=== PATIENT | female | born 1980 | race Caucasian/White ===

== ENCOUNTER 2019-04-14 23:05 | Emergency (ER) | payer MEDICARE, MEDICAID ==
[~2019-04-14] VITALS: Ht 162.6 cm; Wt 93.6 kg
[~2019-04-14 23:05] MED LIST: ALPR-475; PARO20TA98
--- NOTE | 2019-04-14 23:17 | NUR ---
FIRST CONTACT WITH PT. PT IS PARTICULARLY DIFFICULT TO OBTAIN HISTORY FROM D/T MULTIPLE GENERALIZED COMPLAINTS. PT HAVING DIFFICULTY REPORTING CHRONIC VS ACUTE CONDITION. PT REPORTS RUQ PAIN X "A LONG TIME" D/T HERNIA SP LIN. PT ALSO CO L FLANK PAIN X "" WORSENING RECENTLY. PT ALSO CO L SHOULDER PAIN, +FULL ROM/RADIAL PULSES/STRENGTH. +N/V/CONSTIPATION. "I MEAN I DON'T KNOW. I'M BULIMIC- SO MAYBE I'M JUST THROWING UP BECAUSE OF THAT". NAD NOTED. PT PWD; DENIES TRAUMA. BP/SPO2/ECG MONITORING IN PLACE. TECH AT FOR EKG. PT AMBUALTED STEADILY TO BATHROOM TO PROVIDE UA.
[2019-04-14 23:52] LABS: BASOPHILS # (AUTO) 0.04 x10^3/uL (0-0.1); BASOPHILS % (AUTO) 1 % (0-1); EOSINOPHILS # (AUTO) 0.06 x10^3/uL (0-0.4); EOSINOPHILS % (AUTO) 1 % (1-7); LYMPHOCYTES # (AUTO) 1.36 x10^3/uL (1-3.4); LYMPHOCYTES % (AUTO) 14 % (22-44); MD NO; MEAN CORPUSCULAR HEMOGLOBIN 29.8 pg (27.0-34.8); MEAN CORPUSCULAR HGB CONC 33.5 g/dL (32.4-35.8); MEAN PLATELET VOLUME 7.6 fL (7.4-10.4); MONOCYTES # (AUTO) 0.41 x10^3/uL (0.2-0.8); MONOCYTES % (AUTO) 4 % (2-9); NEUTROPHILS # (AUTO) 7.63 x10^3/uL (1.8-6.8); NEUTROPHILS % (AUTO) 80 % (42-75); PLATELET COUNT 372 x10^3/uL (130-400); RED BLOOD COUNT 4.39 x10^6/uL (3.82-5.3); RED CELL DISTRIBUTION WIDTH 14.8 % (9.6-15.2)
[2019-04-14] MEDS ORDERED: ONDANSETRON 2MG/ML, 2ML ONE (23:53)
[2019-04-14] MEDS ORDERED: KETOROLAC 30 MG/1 ML ONE (23:53)
[2019-04-15] VITALS: BP 151/81
[2019-04-15] MEDS ORDERED: KETOROLAC 30 MG/1 ML IVPush ONE
[2019-04-15] MEDS ORDERED: ONDANSETRON 2MG/ML, 2ML IVPush ONE
--- NOTE | 2019-04-15 00:01 | NUR ---
PT RETURNED FROM RAD. IV ESTABLSHED. PT MEDICATED PER EMAR FOR PAIN
[2019-04-15 00:04] LABS: HCG UR SG 1.036 (1.003-1.030); MICROSCOPIC INDICATED
[2019-04-15 00:05] LABS: ALANINE AMINOTRANSFERASE 25 U/L (12-78); ALBUMIN 3.4 g/dL (3.4-5.0); ANION GAP 5 mmol/L (5-15); CALCIUM 8.6 mg/dL (8.5-10.1); CHLORIDE 110 mmol/L (98-107); CREATININE 0.84 mg/dL (0.55-1.02)
[2019-04-15 00:08] LABS: ALKALINE PHOSPHATASE 65 U/L (45-117); TOTAL PROTEIN 7.3 g/dL (6.4-8.2)
[2019-04-15 00:12] LABS: CULTURE INDICATED? YES
[2019-04-15 00:17] LABS: BILIRUBIN,TOTAL < 0.1 mg/dL (0.2-1.0)
--- NOTE | 2019-04-15 00:45 | NUR ---
PT REPORTS IMPROVEMENT IN PAIN WITH MEDICATIONS. DC EDUCATION PROVIDED, PT DEMONSTRATES UNDERSTANDING. PT AMBULATED STEADILY TO DC WITH RN AND FRIEND
== END 2019-04-15 00:50 | disposition home or self-care (01) ==
LOC: ED 04-15 00:12
DX: R10.11 Right upper quadrant pain (principal); R10.13 Epigastric pain; R10.12 Left upper quadrant pain; R11.2 Nausea with vomiting, unspecified; Z90.89 Acquired absence of other organs; Z90.49 Acquired absence of other specified parts of digestive tract
CPT/HCPCS: 36415; 74021; 80053; 81001; 81025; 83690; 85025; 87086; 93005; 96374; 96375; 99284; J1885; J2405

== ENCOUNTER 2019-10-17 06:32 | Emergency (ER) | payer MEDICARE, MEDICAID ==
[~2019-10-17] VITALS: Ht 162.6 cm; Wt 89.0 kg
[~2019-10-17 06:32] MED LIST changes: -ALPR-475; +ALPR0.5T7
--- NOTE | 2019-10-17 06:54 | NUR ---
REPORT GIVEN TO JEWELS LEÓN.
[2019-10-17 07:25] LABS: BASOPHILS # (AUTO) 0.03 x10^3/uL (0-0.1); BASOPHILS % (AUTO) 0 % (0-1); EOSINOPHILS # (AUTO) 0.13 x10^3/uL (0-0.4); EOSINOPHILS % (AUTO) 1 % (1-7); LYMPHOCYTES % (AUTO) 23 % (22-44); MD NO; MEAN CORPUSCULAR HEMOGLOBIN 30.1 pg (27.0-34.8); MEAN CORPUSCULAR VOLUME 91.2 fL (80-100); MEAN PLATELET VOLUME 7.4 fL (7.4-10.4); MONOCYTES # (AUTO) 0.69 x10^3/uL (0.2-0.8); MONOCYTES % (AUTO) 7 % (2-9); NEUTROPHILS # (AUTO) 6.59 x10^3/uL (1.8-6.8); NEUTROPHILS % (AUTO) 68 % (42-75); PLATELET COUNT 413 x10^3/uL (130-400); RED BLOOD COUNT 4.79 x10^6/uL (3.82-5.3); RED CELL DISTRIBUTION WIDTH 14.5 % (9.6-15.2)
[2019-10-17 07:36] LABS: MICROSCOPIC AUTO
[2019-10-17 07:36] LABS: ALBUMIN 3.7 g/dL (3.4-5.0); ANION GAP 7 mmol/L (5-15); CALCIUM 9.3 mg/dL (8.5-10.1); CHLORIDE 103 mmol/L (98-107); CREATININE 1.02 mg/dL (0.55-1.02)
[2019-10-17 07:37] LABS: CULTURE INDICATED? NO
[2019-10-17 07:39] LABS: TROPONIN I < 0.015 ng/mL (0.000-0.045)
[2019-10-17] MEDS ORDERED: KETOROLAC 30 MG/1 ML ONE (07:54)
[2019-10-17] MEDS ORDERED: METHOCARBAMOL 750 MG TABLET ONE (07:54)
[2019-10-17] MEDS ORDERED: KETOROLAC 30 MG/1 ML IM ONE (08:00)
[2019-10-17] MEDS ORDERED: METHOCARBAMOL 750 MG TABLET PO ONE (08:00)
[2019-10-17] MEDS ORDERED: SODIUM CHLORIDE FLUSH 10ML SYR IVF ONE (09:00)
[2019-10-17 09:44] VITALS: BP 144/88
--- NOTE | 2019-10-17 09:45 | NUR ---
PT TO CT AT THIS TIME
[2019-10-17] MEDS ORDERED: OMNIPAQUE 350 MG/ML, 100ML BOTTLE ONE (09:53)
== END 2019-10-17 10:51 | disposition home or self-care (01) ==
LOC: ED 07:29
DX: S29.012A Strain of muscle and tendon of back wall of thorax, initial encounter (principal); R06.02 Shortness of breath; J02.9 Acute pharyngitis, unspecified; R05 Cough; X58.XXXA Exposure to other specified factors, initial encounter; Y93.89 Activity, other specified; Y92.89 Other specified places as the place of occurrence of the external cause; Y99.8 Other external cause status
CPT/HCPCS: 36415; 71045; 71275; 80048; 81001; 82040; 84484; 85025; 85379; 87081; 87880; 93005; 96372; 99284; J1885; Q9967

== ENCOUNTER 2020-10-27 13:26 | Emergency (ER) | payer MEDICARE ==
[~2020-10-27] VITALS: Ht 162.6 cm; Wt 96.3 kg
--- NOTE | 2020-10-27 13:52 | NUR ---
BP AND SP02 MONITORING PLACED. CALL LIGHT W/I REACH. ER PROIDER EVAL PENDING
[2020-10-27] MEDS ORDERED: SODIUM CHLORIDE FLUSH 10ML SYR IVF ONE (15:00)
--- NOTE | 2020-10-27 15:05 | NUR ---
BREAK RN: PIV PLACED FOR CT OF CHEST WITH CONTRAST. VSS, MONITORING IN PLACE. DENIES FURTHER NEEDS AT THIS TIME
[2020-10-27 15:11] LABS: BASOPHILS % (AUTO) 1 % (0-1); EOSINOPHILS % (AUTO) 2 % (1-7); LYMPHOCYTES % (AUTO) 27 % (22-44); MEAN CORPUSCULAR HEMOGLOBIN 29.5 pg (27.0-34.8); MEAN CORPUSCULAR HGB CONC 33.1 g/dL (32.4-35.8); MEAN PLATELET VOLUME 7.8 fL (7.4-10.4); MONOCYTES % (AUTO) 9 % (2-9); NEUTROPHILS % (AUTO) 61 % (42-75); PLATELET COUNT 380 x10^3/uL (130-400); RED BLOOD COUNT 4.31 x10^6/uL (3.82-5.3); RED CELL DISTRIBUTION WIDTH 14.6 % (9.6-15.2)
[2020-10-27 15:16] LABS: MD NO
[2020-10-27 15:17] LABS: ALANINE AMINOTRANSFERASE 25 U/L (12-78); ALBUMIN 3.7 g/dL (3.4-5.0); ANION GAP 5 mmol/L (5-15); CALCIUM 9.1 mg/dL (8.5-10.1); CHLORIDE 104 mmol/L (98-107); CREATININE 0.81 mg/dL (0.55-1.02)
[2020-10-27 15:21] LABS: ALKALINE PHOSPHATASE 87 U/L (45-117); BILIRUBIN,TOTAL 0.4 mg/dL (0.2-1.0); TOTAL PROTEIN 7.7 g/dL (6.4-8.2)
--- NOTE | 2020-10-27 16:24 | NUR ---
PT RTD FROM CT. NAD NOTED.
[2020-10-27] MEDS ORDERED: OMNIPAQUE 350 MG/ML, 100ML BOTTLE ONE (16:27)
[2020-10-27 17:21] VITALS: BP 147/80
--- NOTE | 2020-10-27 17:22 | NUR ---
Patient given discharge instructions and they have confirmed that they understand the instructions. Patient ambulatory with steady gait.
== END 2020-10-27 17:24 | disposition home or self-care (01) ==
LOC: ED 14:17
DX: I89.0 Lymphedema, not elsewhere classified (principal); M79.89 Other specified soft tissue disorders; M79.602 Pain in left arm; R06.02 Shortness of breath; Z90.89 Acquired absence of other organs; Z90.49 Acquired absence of other specified parts of digestive tract
CPT/HCPCS: 36415; 71260; 80053; 82378; 85025; 99285; Q9967

== ENCOUNTER 2021-03-22 12:57 | Outpatient (CLI) | payer MEDICARE, MEDICAID | END 2021-03-22 23:59 | disposition home or self-care (01) | LOC: CFH 12:57 | PROVIDERS: ATTEND Family Medicine | DX: N60.02 Solitary cyst of left breast (principal); N63.21 Unspecified lump in the left breast, upper outer quadrant | CPT/HCPCS: 76642; 77062; 77066; G0279 ==